=== PATIENT | female | born 1995 | race Caucasian/White ===

== ENCOUNTER 2017-12-08 17:20 | Emergency (ER) | payer MEDICAID ==
[~2017-12-08] VITALS: Ht 162.6 cm; Wt 131.1 kg
[2017-12-08 17:23] VITALS: BP 134/81
== END 2017-12-08 18:54 | disposition home or self-care (01) ==
LOC: ED 18:20
DX: J02.0 Streptococcal pharyngitis (principal)
CPT/HCPCS: 87880; 99283

== ENCOUNTER 2018-07-07 19:47 | Emergency (ER) | payer MEDICAID, OTHER ==
[~2018-07-07] VITALS: Ht 157.5 cm; Wt 127.0 kg
[2018-07-07 20:34] LABS: HCG UR SG 1.035 (1.003-1.030)
[2018-07-07 20:42] LABS: CULTURE INDICATED? NO; MICROSCOPIC NOT IND
[2018-07-07 21:45] LABS: BASOPHILS # (AUTO) 0.04 x10^3/uL (0-0.1); BASOPHILS % (AUTO) 0 % (0-1); EOSINOPHILS # (AUTO) 0.15 x10^3/uL (0-0.4); EOSINOPHILS % (AUTO) 1 % (1-7); LYMPHOCYTES # (AUTO) 4.29 x10^3/uL (1-3.4); LYMPHOCYTES % (AUTO) 37 % (22-44); MD NO; MEAN CORPUSCULAR HEMOGLOBIN 28.7 pg (27.0-34.8); MEAN CORPUSCULAR HGB CONC 33.5 g/dL (32.4-35.8); MEAN CORPUSCULAR VOLUME 85.7 fL (80-100); MEAN PLATELET VOLUME 10.4 fL (7.4-10.4); MONOCYTES # (AUTO) 0.52 x10^3/uL (0.2-0.8); MONOCYTES % (AUTO) 5 % (2-9); NEUTROPHILS # (AUTO) 6.67 x10^3/uL (1.8-6.8); NEUTROPHILS % (AUTO) 57 % (42-75); PLATELET COUNT 278 x10^3/uL (130-400); RED CELL DISTRIBUTION WIDTH 14.5 % (9.6-15.2)
[2018-07-07 21:54] LABS: ALANINE AMINOTRANSFERASE 24 U/L (12-78); ALBUMIN 3.3 g/dL (3.4-5.0); ANION GAP 9 mmol/L (5-15); CALCIUM 8.5 mg/dL (8.5-10.1); CHLORIDE 108 mmol/L (98-107); CREATININE 0.77 mg/dL (0.55-1.02)
[2018-07-07 21:59] LABS: ALKALINE PHOSPHATASE 40 U/L (45-117); BILIRUBIN,TOTAL 0.2 mg/dL (0.2-1.0)
[2018-07-07 22:38] VITALS: BP 131/65
[2018-07-07 22:38] LABS: CLUE CELLS NONE SEEN (NONE SEEN); WET PREP WBCS NONE SEEN (FEW)
== END 2018-07-07 23:33 | disposition home or self-care (01) ==
LOC: ED 22:10
DX: O23.591 Infection of other part of genital tract in pregnancy, first trimester (principal); O26.891 Other specified pregnancy related conditions, first trimester; R10.30 Lower abdominal pain, unspecified; Z90.49 Acquired absence of other specified parts of digestive tract; Z3A.01 Less than 8 weeks gestation of pregnancy
CPT/HCPCS: 36415; 76801; 80053; 81003; 81025; 84702; 85025; 87210; 87491; 87591; 87808; 99285

== ENCOUNTER 2018-08-06 16:32 | Emergency (ER) | payer MEDICAID, OTHER ==
[~2018-08-06] VITALS: Ht 157.5 cm; Wt 127.0 kg
[2018-08-06 17:12] LABS: BASOPHILS # (AUTO) 0.03 x10^3/uL (0-0.1); BASOPHILS % (AUTO) 0 % (0-1); EOSINOPHILS # (AUTO) 0.11 x10^3/uL (0-0.4); EOSINOPHILS % (AUTO) 1 % (1-7); LYMPHOCYTES # (AUTO) 2.68 x10^3/uL (1-3.4); LYMPHOCYTES % (AUTO) 31 % (22-44); MD NO; MEAN CORPUSCULAR HEMOGLOBIN 28.6 pg (27.0-34.8); MEAN CORPUSCULAR HGB CONC 33.7 g/dL (32.4-35.8); MEAN CORPUSCULAR VOLUME 84.8 fL (80-100); MEAN PLATELET VOLUME 10.4 fL (7.4-10.4); MONOCYTES # (AUTO) 0.46 x10^3/uL (0.2-0.8); MONOCYTES % (AUTO) 5 % (2-9); NEUTROPHILS % (AUTO) 62 % (42-75); PLATELET COUNT 283 x10^3/uL (130-400); RED BLOOD COUNT 4.41 x10^6/uL (3.82-5.3); RED CELL DISTRIBUTION WIDTH 13.7 % (9.6-15.2)
[2018-08-06 17:23] LABS: ALBUMIN 3.2 g/dL (3.4-5.0); ANION GAP 10 mmol/L (5-15); CALCIUM 8.6 mg/dL (8.5-10.1); CHLORIDE 105 mmol/L (98-107)
[2018-08-06 17:44] LABS: ALANINE AMINOTRANSFERASE 21 U/L (12-78); ALKALINE PHOSPHATASE 41 U/L (45-117); BILIRUBIN,TOTAL 0.1 mg/dL (0.2-1.0); CREATININE 0.61 mg/dL (0.55-1.02); TOTAL PROTEIN 7.3 g/dL (6.4-8.2)
[2018-08-06] MEDS ORDERED: FAMOTIDINE 20 MG TABLET PO ONE (18:00)
[2018-08-06] MEDS ORDERED: ALUMINUM/MAG/SIMETHICONE 30 ML UDC PO ONE (18:00)
[2018-08-06] MEDS ORDERED: ALUMINUM/MAG/SIMETHICONE 30 ML UDC ONE (18:20)
[2018-08-06] MEDS ORDERED: FAMOTIDINE 20 MG TABLET ONE (18:20)
[2018-08-06 18:29] LABS: MICROSCOPIC AUTO
[2018-08-06 18:32] LABS: CULTURE INDICATED? YES
[2018-08-06 19:41] VITALS: BP 133/86
== END 2018-08-06 19:44 | disposition home or self-care (01) ==
LOC: ED 17:35
DX: O26.891 Other specified pregnancy related conditions, first trimester (principal); O23.11 Infections of bladder in pregnancy, first trimester; K29.00 Acute gastritis without bleeding; Z3A.09 9 weeks gestation of pregnancy
CPT/HCPCS: 36415; 76700; 80053; 81001; 83690; 84702; 85025; 87086; 99285

== ENCOUNTER 2019-01-18 18:12 | Outpatient (CLI) | payer OTHER, MEDICAID ==
[~2019-01-18] VITALS: Ht 157.5 cm; Wt 128.2 kg
[2019-01-18] MEDS ORDERED: PREN1TAB60 PO (18:30)
[2019-01-18 18:52] VITALS: BP 119/65
[2019-01-18] MEDS ORDERED: TERBUTALINE 1 MG/ML, 1ML ONE (19:22)
[2019-01-18] MEDS ORDERED: TERBUTALINE 1 MG/ML, 1ML SQ PRN (19:30)
== END 2019-01-18 20:20 | disposition home or self-care (01) ==
LOC: LDOP 18:12
PROVIDERS: ATTEND Obstetrics & Gynecology
DX: O42.913 Preterm premature rupture of membranes, unspecified as to length of time between rupture and onset of labor, third trimester (principal); Z3A.32 32 weeks gestation of pregnancy
CPT/HCPCS: 59025; 84112; 99211; J3105; G0463

== ENCOUNTER 2019-02-05 13:50 | Emergency (ER) | payer OTHER, MEDICAID ==
[~2019-02-05] VITALS: Ht 157.5 cm; Wt 133.0 kg
[~2019-02-05 13:50] MED LIST: PREN1TAB60 PO
--- NOTE | 2019-02-05 14:03 | NUR ---
L&D notified, coming to ER for FHT. Pt denies cramping/contractions.
--- NOTE | 2019-02-05 14:41 | NUR ---
ERP AT [facility]. PT STATES SHE SAW HER PCP LAST SAT AND HAS BEEN USING OTC EAR DROPS BUT STATES THE EAR PAIN IS GETTING WORSE, R WORSE THAN L. PT ALSO C/O SORE THROAT.
--- NOTE | 2019-02-05 14:42 | NUR ---
FHT DONE AT [facility] BY L[facility]Maggie.
--- NOTE | 2019-02-05 15:37 | NUR ---
D/C INSTRUCTIONS, MEDS & F/U APPT RV'WD WITH PT, SHE VERBALIZES UNDERSTANDING. RX GIVEN X1. AMBULATED OUT OF ED WITHOUT DIFFICULTY.
[2019-02-05 15:38] VITALS: BP 145/98
== END 2019-02-05 15:41 | disposition home or self-care (01) ==
LOC: ED 15:35
DX: O26.893 Other specified pregnancy related conditions, third trimester (principal); Z3A.35 35 weeks gestation of pregnancy; H92.03 Otalgia, bilateral; G43.909 Migraine, unspecified, not intractable, without status migrainosus; Z90.49 Acquired absence of other specified parts of digestive tract
CPT/HCPCS: 99282

== ENCOUNTER 2019-02-17 15:21 | Outpatient (CLI) | payer OTHER, MEDICAID ==
[~2019-02-17] VITALS: Ht 157.5 cm; Wt 133.2 kg
[2019-02-17 15:35] VITALS: BP 137/78
[2019-02-17 16:00] LABS: BASOPHILS # (AUTO) 0.02 x10^3/uL (0-0.1); BASOPHILS % (AUTO) 0 % (0-1); EOSINOPHILS # (AUTO) 0.02 x10^3/uL (0-0.4); EOSINOPHILS % (AUTO) 0 % (1-7); LYMPHOCYTES # (AUTO) 2.59 x10^3/uL (1-3.4); LYMPHOCYTES % (AUTO) 32 % (22-44); MD NO; MEAN CORPUSCULAR HEMOGLOBIN 28.8 pg (27.0-34.8); MEAN CORPUSCULAR HGB CONC 32.8 g/dL (32.4-35.8); MEAN CORPUSCULAR VOLUME 87.8 fL (80-100); MEAN PLATELET VOLUME 11.5 fL (7.4-10.4); MONOCYTES # (AUTO) 0.42 x10^3/uL (0.2-0.8); MONOCYTES % (AUTO) 5 % (2-9); NEUTROPHILS # (AUTO) 5.12 x10^3/uL (1.8-6.8); NEUTROPHILS % (AUTO) 63 % (42-75); PLATELET COUNT 206 x10^3/uL (130-400); RED BLOOD COUNT 4.11 x10^6/uL (3.82-5.3); RED CELL DISTRIBUTION WIDTH 14.9 % (9.6-15.2)
[2019-02-17 16:07] LABS: MICROSCOPIC INDICATED
[2019-02-17 16:11] LABS: CHLORIDE 110 mmol/L (98-107)
[2019-02-17 16:15] LABS: ANION GAP 10 mmol/L (5-15); CALCIUM 8.6 mg/dL (8.5-10.1); CREATININE 0.65 mg/dL (0.55-1.02)
[2019-02-17 16:16] LABS: ALANINE AMINOTRANSFERASE 20 U/L (12-78); ALBUMIN 2.4 g/dL (3.4-5.0); ALKALINE PHOSPHATASE 82 U/L (45-117); TOTAL PROTEIN 6.2 g/dL (6.4-8.2)
[2019-02-17 16:21] LABS: BILIRUBIN,TOTAL 0.1 mg/dL (0.2-1.0)
[2019-02-17 16:22] LABS: BILIRUBIN, DIRECT < 0.1 mg/dL (0.1-0.2)
== END 2019-02-17 18:01 | disposition home or self-care (01) ==
LOC: LDOP 15:21
PROVIDERS: ATTEND Obstetrics & Gynecology
DX: O16.3 Unspecified maternal hypertension, third trimester (principal); Z3A.37 37 weeks gestation of pregnancy
CPT/HCPCS: 36415; 59025; 80053; 81001; 82248; 82570; 84156; 84550; 85025; 99211; G0463

== ENCOUNTER 2019-02-23 16:59 | Outpatient (CLI) | payer OTHER, MEDICAID ==
[~2019-02-23] VITALS: Ht 157.5 cm; Wt 133.2 kg
[2019-02-23 17:18] VITALS: BP 139/80
[2019-03-05] MEDS ORDERED: DOCU-131 PO (11:56)
[2019-03-05] MEDS ORDERED: IBUP-1222 PO (11:56)
[2019-03-05] MEDS ORDERED: OXYC-302 PO (11:57)
== END 2019-02-23 17:48 | disposition home or self-care (01) ==
LOC: LDOP 16:59
PROVIDERS: ATTEND Obstetrics & Gynecology
DX: Z34.93 Encounter for supervision of normal pregnancy, unspecified, third trimester (principal)
CPT/HCPCS: 59025; 99211; G0463

== ENCOUNTER 2019-02-27 09:12 | Outpatient (CLI) | payer OTHER, MEDICAID ==
[~2019-02-27] VITALS: Ht 157.5 cm; Wt 133.2 kg
[2019-02-27 09:24] VITALS: BP 132/83
[2019-03-05] MEDS ORDERED: IBUP-1222 PO (11:56)
[2019-03-05] MEDS ORDERED: DOCU-131 PO (11:56)
[2019-03-05] MEDS ORDERED: OXYC-302 PO (11:57)
== END 2019-02-27 11:19 | disposition home or self-care (01) ==
LOC: LDOP 09:12
PROVIDERS: ATTEND Obstetrics & Gynecology
DX: O62.9 Abnormality of forces of labor, unspecified (principal); Z3A.38 38 weeks gestation of pregnancy
CPT/HCPCS: 59025; 84112; 99211; G0463

== ENCOUNTER 2019-03-06 22:12 | Outpatient (CLI) | payer OTHER, MEDICAID ==
[~2019-03-06] VITALS: Ht 157.5 cm; Wt 126.0 kg
[~2019-03-06 22:12] MED LIST changes: +DOCU-131 PO; +IBUP-1222 PO; +OXYC-302 PO
== END 2019-03-06 23:08 | disposition home or self-care (01) ==
LOC: LDOP 22:12
PROVIDERS: ATTEND Obstetrics & Gynecology
DX: O26.893 Other specified pregnancy related conditions, third trimester (principal); R51 Headache; Z3A.39 39 weeks gestation of pregnancy
CPT/HCPCS: 99211; G0463

== ENCOUNTER 2021-05-18 21:23 | Emergency (ER) | payer MEDICAID, OTHER ==
[~2021-05-18] VITALS: Ht 162.6 cm; Wt 101.0 kg
[~2021-05-18 21:23] MED LIST changes: -OXYC-302 PO; +OXYC1TAB14 PO
[2021-05-18 22:29] LABS: HCG UR SG 1.026 (1.003-1.030)
[2021-05-18 22:32] LABS: MICROSCOPIC INDICATED
--- NOTE | 2021-05-18 23:02 | NUR ---
CC OF VAGINAL DISCOMFORT, DISCHARGE, AND REDDNESS. PT STATES SHE THOUGHT IT COULD BE YEAST INFECTION OR UTI AND TRIED OTC REMEDIES WITH NO IMPROVEMENT. UNABLE TO GET APPOITMENT WITH OB UNTIL JUNE.
[2021-05-18 23:55] LABS: WET PREP WBCS MODERATE (FEW)
[2021-05-19 00:02] LABS: CLUE CELLS NONE SEEN (NONE SEEN)
[2021-05-19 00:42] VITALS: BP 138/75
== END 2021-05-19 00:44 | disposition home or self-care (01) ==
LOC: ED 21:53
DX: N30.01 Acute cystitis with hematuria (principal); N89.8 Other specified noninflammatory disorders of vagina
CPT/HCPCS: 81001; 81025; 87086; 87210; 87491; 87591; 87808; 99284